=== PATIENT | female | born 1985 | race Caucasian/White ===

== ENCOUNTER 2020-09-06 21:26 | Emergency (ER) | payer OTHER, MEDICAID, SELFPAY ==
[2020-09-06 21:40] VITALS: BP 145/92; PULSE 99; RESP 20; TEMP 36.4; O2SAT 94; BMI 29.2
--- NOTE | 2020-09-06 21:42 | DI.RAD.S_ITS ---
PROCEDURE: XR HAND RT MIN 3V INDICATIONS: punched a wall, 5th knuckle swelling TECHNIQUE: 3 views of the hand(s) acquired. COMPARISON: None. FINDINGS: Bones: No fractures or dislocations. Carpal bones are normally aligned. No suspicious bony lesions. Soft tissues: There is soft tissue swelling overlying the 5th MCP joint. No suspicious soft tissue calcifications. IMPRESSION: Soft tissue swelling over the 5th MCP joint. No underlying bony abnormality. Dictated by: Mei Wilson M.D. on 09/06/2020 at 22:02 Approved by: Mei Wilson M.D. on 09/06/2020 at 22:03
--- NOTE | 2020-09-06 21:50 | ED_ITS ---
HPI - Extremity Injury (Upper) General Chief Complaint: Extremity Injury, Upper Stated Complaint: right hand injury from punching a wall Time Seen by Provider: 09/06/20 21:50 Source: patient Mode of arrival: Ambulatory Limitations: no limitations History of Present Illness HPI narrative: 34-year-old woman with no significant medical history became frustrated and angry and punched a wall with her right hand. She noticed immediate swelling but no immediate pain. She comes in for further evaluation. She does state that it has been a number of years and she has done something like this. Related Data Allergies Allergy/AdvReac Type Severity Reaction Status Date / Time No Known Drug Allergies Allergy Verified 09/06/20 21:42 Review of Systems Review of Systems Narrative: Pertinent positive and negative findings as per HPI Remainder of review of systems is otherwise unremarkable for Constitutional: Fevers, chills, weakness ENT: No sore throat, neck pain, ear pain CV: Chest pain, palpitations, dyspnea on exertion Respiratory: Cough, wheeze, dyspnea GI: Nausea, vomiting, diarrhea, : Dysuria, hematuria, flank pain Exam Narrative Exam Narrative: General: Alert appropriate in no acute distress Respiratory: Able to speak in full sentences, no obvious respiratory distress Skin: No obvious rashes, warm and dry Neurologic: Grossly intact no obvious asymmetries or abnormalities Psych, appropriate insight and affect, cooperative Extremity: Dorsum of the right hand in the 4th and 5th knuckles with expanding hematoma with no abrasion or skin breakdown. She does have full range of motion at the wrist and with all fingers. She is neurovascularly intact. Initial Vital Signs Initial Vital Signs: Vital Signs Temperature 97.6 F 09/06/20 21:40 Pulse Rate 99 H 09/06/20 21:40 Respiratory Rate 20 09/06/20 21:40 Blood Pressure 145/92 H 09/06/20 21:40 Pulse Oximetry 94 09/06/20 21:40 Course Orders Ordered: ED Orders 09/06/20 21:42 XR hand RT min 3V Stat Discontinued Medications Acetaminophen (Tylenol) 325 mg PO NOW ONE Stop: 09/06/20 22:48 Ibuprofen (Advil) 400 mg PO NOW ONE Stop: 09/06/20 22:48 Vital Signs Vital signs: Vital Signs - 8 hr 09/06/20 21:40 09/06/20 22:43 Temperature 97.6 F Pulse Rate 99 H 87 Respiratory Rate 20 Blood Pressure 145/92 H 133/81 [address] [facility] - Extremity Injury (Upper) Medical Records Attestation: I reviewed the patient's medical records. Lab Data Attestation: I reviewed the patient's lab results. Imaging Data Hand x-ray: Radiologist's Impression: FINDINGS: Bones: No fractures or dislocations. Carpal bones are normally aligned. No suspicious bony lesions. Soft tissues: There is soft tissue swelling overlying the 5th MCP joint. No suspicious soft tissue calcifications. IMPRESSION: Soft tissue swelling over the 5th MCP joint. No underlying bony abnormality. Dictated by: Mei Wilson M.D. on 09/06/2020 at 22:02 [facility] Narrative Medical decision making narrative: 34-year-old woman who got angry and hit a wall. She noticed immediate bruising and no pain which actually concerned her. She is now noticing a bit of pain. X-ray does not show fracture. Her hand is wrapped with an Reji wrap for compression and pain control. And she is safe for home discharge Discharge Plan Departure Patient Disposition: Home Clinical Impression: Contusion of hand Qualifiers: Encounter type: initial encounter Laterality: right Qualified Code(s): S60.221A - Contusion of right hand, initial encounter Instructions: DI for Hand Injury Activity Restrictions/Additional Instructions: Thank you for coming in today Your x-ray does not show any broken bones. You clearly broke some blood vessels and are going to have quite a bit of swelling over the knuckles and back part of your hand. Using 400 mg of ibuprofen (2 [id number] pills) and 1 Tylenol every 6 hours can be very helpful in controlling pain. Using the Reji wrap will also be helpful as will ice. I would expect that it will get more swollen and the more tender through the next 2 days and then begin to improve. If you notice any numbness tingling or inability to usual fingers it would be appropriate to return to the emergency room for further evaluation
[2020-09-06 22:43] VITALS: BP 133/81; PULSE 87; RESP 14; O2SAT 99
[2020-09-06] MEDS: ACETAMINOPHEN 325 MG TABLET PO (22:53)
[2020-09-06] MEDS: IBUPROFEN 400 MG TABLET PO (22:53)
== END 2020-09-06 22:56 | disposition home or self-care (01) ==
PROVIDERS: Emergency Provider Emergency Medicine
DX: S60.221A Contusion of right hand, initial encounter (principal); W22.01XA Walked into wall, initial encounter
CPT/HCPCS: 73130; 99283